=== PATIENT | male | born 1950 | race Two or more races ===

== ENCOUNTER 2018-05-23 00:58 | Emergency (ER) | payer MEDICAID ==
[~2018-05-23] VITALS: Ht 175.3 cm; Wt 75.7 kg
[2018-05-23 01:15] VITALS: BP 117/72
[2018-05-23] MEDS ORDERED: INSULIN CHARG5 UNITS SUBQ (01:18)
[2018-05-23] MEDS ORDERED: ASPIR 8181 MG ORAL (01:18)
[2018-05-23] MEDS ORDERED: JANUMET 50-1,01 EACH ORAL (01:18)
[2018-05-23] MEDS ORDERED: ATORVASTATIN CA10 MG ORAL (01:19)
[2018-05-23] MEDS ORDERED: ACTOS15 MG ORAL (01:19)
[2018-05-23 01:45] LABS: BASOPHILS % (AUTO) 1.3 % (0.0-2.0); EOSINOPHILS % (AUTO) 3.4 % (0.0-3.0); HEMATOCRIT 45.7 % (42.0-52.0); HEMOGLOBIN 14.9 G/DL (14.2-18.0); LYMPHOCYTES % (AUTO) 38.2 % (20.0-45.0); MEAN CORPUSCULAR VOLUME 92 FL (80-99); MONOCYTES % (AUTO) 9.4 % (1.0-10.0); NEUTROPHILS % (AUTO) 47.7 % (45.0-75.0); PLATELET COUNT 150 K/UL (150-450); RED BLOOD COUNT 4.99 M/UL (4.70-6.10); WHITE BLOOD COUNT 6.2 K/UL (4.8-10.8)
--- NOTE | 2018-05-23 01:48 | NUR ---
ED Nurse Note: Patient walk in c/o chest pain radiating to left arm for 30x minutes. Pain began while driving. pt hooked on monitor. vs within normal limit. blood drawn and sent to lab, pt able to give urine and sent to lab. will continue to monitor.
[2018-05-23 01:57] LABS: ANION GAP 8 mmol/L (5-15); BLOOD UREA NITROGEN 19 mg/dL (7-18); CALCIUM 9.9 MG/DL (8.5-10.1); CARBON DIOXIDE 29 MMOL/L (21-32); CHLORIDE 100 MMOL/L (98-107); CREATININE 1.4 MG/DL (0.55-1.30); POTASSIUM 4.2 MMOL/L (3.5-5.1); SODIUM 137 MMOL/L (136-145)
[2018-05-23] MEDS ORDERED: Morphine Sulfate 4mg/ml Inj (IV/IM USE ONLY) IVP ONE (02:00)
[2018-05-23 02:10] LABS: ALANINE AMINOTRANSFERASE 23 U/L (12-78); ALBUMIN 4.3 G/DL (3.4-5.0); ALBUMIN/GLOBULIN RATIO 1.1 (1.0-2.7); ALKALINE PHOSPHATASE 67 U/L (46-116); ASPARTATE AMINO TRANSFERASE 17 U/L (15-37); BILIRUBIN,TOTAL 1.1 MG/DL (0.2-1.0); CKMB 2.2 NG/ML (0.0-3.6); CREATINE KINASE 156 U/L (26-308)
[2018-05-23 02:11] LABS: BILIRUBIN,DIRECT 0.3 MG/DL (0.0-0.3)
[2018-05-23] MEDS ORDERED: Nitroglycerin Subl 0.4mg tab SL ONE (02:30)
--- NOTE | 2018-05-23 02:30 | NUR ---
ED Nurse Note: ermd order ntg sl and carried out. pt stated the pain lessen to 7/10. pb 106/62 will continue to monitor.
--- NOTE | 2018-05-23 02:35 | NUR ---
ED Nurse Note: pt reassess and stated 6/10 pain. bp 107/67. will continue to monitor.
--- NOTE | 2018-05-23 02:40 | NUR ---
ED Nurse Note: ermd made aware that pt stating the pain was lessen to 6/10 and vitals gins within normal limit. ermd ordered troponin to be repeated @5am. will continue to monitor pt.
[2018-05-23 06:10] VITALS: BP 102/62
--- NOTE | 2018-05-23 06:10 | NUR ---
ED Nurse Note: pt was cleared for dicharge by radhames. discharge instruction provided and pt able to verbalize understanding. pt aox4. vss. iv and id band removed. pt left the ed with steady gait and with all his belongings.
--- NOTE | 2018-05-23 06:27 | Emergency Room Report ---
History of Present Illness General Chief Complaint: Chest Pain Source: Patient Present Illness HPI 67-year-old male presents to ED complaining of chest pain. Patient states chest pain started about 30 minutes prior to arrival. Started while he was driving. Sharp, 5 out of 10, radiating down the left arm. Denies any shortness of breath. Denies smoking or drug use. Denies any cardiac problems. Notes history of diabetes. No other aggravating relieving factors. Denies any other associated symptoms Allergies: Coded Allergies: No Known Allergies (Unverified , 05/23/18) Patient History Past Medical History: DM Past Surgical History: none Pertinent Family History: none Social History: Denies: smoking, alcohol use, drug use Immunizations: UTD Reviewed Nursing Documentation: PMH: Agreed; PSxH: Agreed Nursing Documentation-PMH Past Medical History: No History, Except For Hx Cardiac Problems: Yes Hx Diabetes: Yes - type 1 Review of Systems All Other Systems: negative except mentioned in HPI Physical Exam Vital Signs Date Time Temp Pulse Resp B/P (MAP) Pulse Ox O2 Delivery O2 Flow Rate FiO2 05/23/18 01:12 98.1 81 16 117/72 95 Room Air Sp02 EP Interpretation: reviewed, normal General Appearance: no apparent distress, alert, GCS 15, non-toxic Head: normocephalic, atraumatic Eyes: bilateral eye normal inspection, bilateral eye PERRL ENT: hearing grossly normal, normal pharynx, no angioedema, normal voice Neck: full range of motion, supple/symm/no masses Respiratory: chest non-tender, lungs clear, normal breath sounds, speaking full sentences Cardiovascular #1: regular rate, rhythm, no edema Cardiovascular #2: 2+ carotid (R), 2+ carotid (L), 2+ radial (R), 2+ radial (L) , 2+ dorsalis pedis (R), 2+ dorsalis pedis (L) Gastrointestinal: normal bowel sounds, non tender, soft, non-distended, no guarding, no rebound Rectal: deferred Genitourinary: normal inspection, no CVA tenderness Musculoskeletal: back normal, gait/station normal, normal range of motion, non- tender Neurologic: alert, oriented x3, responsive, motor strength/tone normal, sensory intact, speech normal Psychiatric: judgement/insight normal, memory normal, mood/affect normal, no suicidal/homicidal ideation Reflexes: 3+ bicep (R), 3+ bicep (L), 3+ tricep (R), 3+ tricep (L), 3+ knee (R) , 3+ knee (L) Skin: normal color, no rash, warm/dry, well hydrated Lymphatic: no adenopathy Medical Decision Making Diagnostic Impression: Primary Impression: Chest pain Qualified Codes: R07.9 - Chest pain, unspecified ER Course Hospital Course 67-year-old M presents ED complaining of chest pain Differential diagnoses include: Rib fracture, GA/unstable angina, contusion, muscle strain Clinical course Patient placed on stretcher. After initial history and physical I ordered labs , EKG, chest x-ray. labs reviewed- all electrolytes normal, no leukocytosis, hemoglobin/hematocrit stable, initial troponin negative EKG - NSR, RBB no acute ischemic changes interpreted by me Chest x-ray-no cardiomegaly, no rib fracture, no pneumothorax, no acute process I discussed findings with the patient. Patient has no cardiac risk factors. However is a diabetic. Initial troponin was negative. Discussed option for admission versus repeat troponin. Patient asked if we can repeat the troponin Repeat troponin 4 hours later also negative. I discussed with patient. Gave option for admission but he declined. States he would prefer to follow-up with his PMD. Given copy of labs and EKG I. I feel this is a highly complex case requiring extensive working including EKG/Rhythm strip, Xray/CT/US, Blood/urine lab work, repeat exams while in ED, and administration of strong opiates/narcotics for pain control, admission to hospital or close patient follow up. Diagnosis - chest pain Stable and discharged to home. Instructed to followup with PMD. Return to ED if symptoms recur or worsen Labs Test 05/23/18 01:35 05/23/18 05:27 White Blood Count 6.2 K/UL (4.8-10.8) Red Blood Count 4.99 M/UL (4.70-6.10) Hemoglobin 14.9 G/DL (14.2-18.0) Hematocrit 45.7 % (42.0-52.0) Mean Corpuscular Volume 92 FL (80-99) Mean Corpuscular Hemoglobin 29.8 PG (27.0-31.0) Mean Corpuscular Hemoglobin Concent 32.6 G/DL (32.0-36.0) Red Cell Distribution Width 13.0 % (11.6-14.8) Platelet Count 150 K/UL (150-450) Mean Platelet Volume 6.9 FL (6.5-10.1) Neutrophils (%) (Auto) 47.7 % (45.0-75.0) Lymphocytes (%) (Auto) 38.2 % (20.0-45.0) Monocytes (%) (Auto) 9.4 % (1.0-10.0) Eosinophils (%) (Auto) 3.4 % (0.0-3.0) Basophils (%) (Auto) 1.3 % (0.0-2.0) Sodium Level 137 MMOL/L (136-145) Potassium Level 4.2 MMOL/L (3.5-5.1) Chloride Level 100 MMOL/L (98-107) Carbon Dioxide Level 29 MMOL/L (21-32) Anion Gap 8 mmol/L (5-15) Blood Urea Nitrogen 19 mg/dL (7-18) Creatinine 1.4 MG/DL (0.55-1.30) Estimat Glomerular Filtration Rate 50.4 mL/min (>60) Glucose Level 298 MG/DL (74-106) Calcium Level 9.9 MG/DL (8.5-10.1) Total Bilirubin 1.1 MG/DL (0.2-1.0) Direct Bilirubin 0.3 MG/DL (0.0-0.3) Aspartate Amino Transf (AST/SGOT) 17 U/L (15-37) Alanine Aminotransferase (ALT/SGPT) 23 U/L (12-78) Alkaline Phosphatase 67 U/L (46-116) Total Creatine Kinase 156 U/L (26-308) Creatine Kinase MB 2.2 NG/ML (0.0-3.6) Creatine Kinase MB Relative Index 1.4 Troponin I 0.000 ng/mL (0.000-0.056) 0.003 ng/mL (0.000-0.056) Pro-B-Type Natriuretic Peptide 258 pg/mL (0-125) Total Protein 8.2 G/DL (6.4-8.2) Albumin 4.3 G/DL (3.4-5.0) Globulin 3.9 g/dL Albumin/Globulin Ratio 1.1 (1.0-2.7) EKG Diagnostic Results Rate: normal Rhythm: NSR ST Segments: other - RBBB ASA given to the pt in ED: No Rhythm Strip Diag. Results EP Interpretation: yes Rhythm: NSR, no PVC's, no ectopy Chest X-Ray Diagnostic Results Chest X-Ray Diagnostic Results : Chest X-Ray Ordered: Yes # of Views/Limited/Complete: 1 View Indication: Chest Pain EP Interpretation: Yes Interpretation: no consolidation, no effusion, no pneumothorax, no acute cardiopulmonary disease Impression: No acute disease Electronically Signed by: Electronically signed by Pablo Vergara MD Last Vital Signs Date Time Temp Pulse Resp B/P (MAP) Pulse Ox O2 Delivery O2 Flow Rate FiO2 05/23/18 02:52 110/62 05/23/18 01:15 98.1 69 16 95 Room Air Status: improved Disposition: HOME, SELF-CARE Condition: Stable Referrals: [facility],REFERRING (PCP) Patient Instructions: Chest Pain Observation Additional Instructions: please see your doctor as soon as possible. return to ED if chest pain returns or gets worse. Pablo Vergara MD May 23, 2018 06:27
--- NOTE | 2018-05-23 12:47 | Diagnostic Imaging Report ---
Indication: Chest pain Technique: One view of the chest Comparison: none Findings: There is fullness to the pulmonary jose m, particularly the left. The lungs and pleural spaces are clear. Heart size is normal. Impression: Bilateral left greater than right pulmonary hilar fullness, likely on the basis of prominent vessels but adenopathy/mass not excludable. Consider CT for further evaluation, unless prior exams are available for comparison which may be useful No acute process Findings discussed by phone with Dr. Montes De Oca at the time of interpretation
--- NOTE | 2018-05-23 15:59 | Cardiology Report ---
APPROVED REPORT EKG Measurement Heart [id number] Normal sinus rhythm Right bundle branch block Abnormal ECG
== END 2018-05-23 06:10 | disposition home or self-care (01) ==
LOC: EMR 01:40
DX: R07.9 Chest pain, unspecified (principal); E10.8 Type 1 diabetes mellitus with unspecified complications; I45.10 Unspecified right bundle-branch block
CPT/HCPCS: 36415; 71045; 80053; 82248; 82550; 82553; 83880; 84484; 85025; 93005; 96361; 96374; 99284; J2270

== ENCOUNTER 2020-03-26 13:10 | Outpatient (CLI) | payer MEDICAID ==
[~2020-03-26 13:10] MED LIST: ACTOS15 MG ORAL; ASPIR 8181 MG ORAL; ATORVASTATIN CA10 MG ORAL; INSULIN CHARG5 UNITS SUBQ; JANUMET 50-1,01 EACH ORAL
[2020-03-27] MEDS ORDERED: SULFASALAZINE500 MG ORAL (08:34)
--- NOTE | 2020-04-01 17:45 | Consultation ---
DATE OF CONSULTATION: 03/26/2020 REFERRING PHYSICIAN: CHIEF COMPLAINT: Referral for colonoscopy. PAST MEDICAL HISTORY: 1. Crohn disease in 1991. 2. Diabetes. PAST SURGICAL HISTORY: Left leg surgery. MEDICATIONS: Sulfasalazine and atorvastatin. FAMILY HISTORY: Noncontributory. SOCIAL HISTORY: The patient denies any alcohol. He smokes 1 pack of cigarettes per day. No IV drug abuse. ALLERGIES: No known allergies. REVIEW OF SYSTEMS: Positive for mild constipation. PHYSICAL EXAMINATION: VITAL SIGNS: Temperature 98.2, weight 169. Vital signs stable HEENT: Normocephalic and atraumatic. Sclerae anicteric. NECK: Supple. No evidence of obvious adenopathy. CARDIOVASCULAR: Regular rate and rhythm. Plus S1, S2. LUNGS: Clear to auscultation bilaterally. ABDOMEN: Positive bowel sounds. Soft and nontender. No rebound. No guarding. No peritoneal sign. EXTREMITIES: No cyanosis, no clubbing, no edema. ASSESSMENT AND PLAN: This is a 69-year-old patient with past medical history of Crohn disease. Currently, it seems to be under control, needs colonoscopy followup. The patient was given instruction for colonoscopy. Risks and benefits of the procedure were explained to him. We will schedule him when authorization is obtained. Heath Umanzor M.D. DR: VIRGILIO JOB#: [id number] CC:
== END 2020-03-26 15:10 | disposition home or self-care (01) ==
LOC: PAN 13:10
DX: K50.90 Crohn's disease, unspecified, without complications (principal); K59.00 Constipation, unspecified; R19.7 Diarrhea, unspecified
CPT/HCPCS: G0463

== ENCOUNTER 2020-07-16 12:39 | Outpatient (CLI) | payer MEDICAID ==
[~2020-07-16 12:39] MED LIST changes: +METFORMIN HCL500 M1 ORAL; +SULFASALAZINE500 MG ORAL; +TRULICITY1.5 MG/0.5 SQ
--- NOTE | 2020-07-16 13:21 | General Progress Note ---
Subjective ROS Limited/Unobtainable: Yes Allergies: Coded Allergies: No Known Allergies (Unverified , 05/23/18) Objective General Appearance: alert EENT: normal ENT inspection Neck: supple Cardiovascular: normal rate Respiratory/Chest: lungs clear Abdomen: normal bowel sounds, non tender, soft Extremities: non-tender Assessment/Plan Assessment/Plan: h/o CD in remission s/p colonoscopy one polyp mild TI inflammation asymptomatic prn miralax for constipation Heath Umanzor MD Jul 16, 2020 13:21
== END 2020-07-16 14:23 | disposition home or self-care (01) ==
LOC: PAN 12:39
DX: K50.90 Crohn's disease, unspecified, without complications (principal); K63.5 Polyp of colon
CPT/HCPCS: 99212